=== PATIENT | male | born 1970 | race Caucasian/White ===

== ENCOUNTER 2017-12-07 15:06 | Emergency (ER) | payer SELFPAY ==
[2017-12-07 15:07] VITALS: BP 126/84; PULSE 83; RESP 18; TEMP 98.6; O2SAT 100
--- NOTE | 2017-12-07 17:50 | PD ---
HPI Chief Complaint: Anxiety Time Seen by Provider: 17:38 Travel History International Travel<30 days: No Contact w/Intl Traveler<30days: No Traveled to known affect area: No History of Present Illness HPI This patient complains of having paranoid thoughts. He denies any auditory or visual hallucination or suicidal thought. He has long-standing diagnosis of depression. He is requesting psychiatric evaluation. He says he went to [facility] earlier today and had extensive medical testing including lab studies and brain CT. He did not get psychiatric evaluation and he desires that. He has history of ADHD and take vyvance. No current drug use. Remote history of cocaine use. Symptoms severity is moderate. No alleviating factors. Symptoms likely exacerbated by his current and ongoing divorce. [facility] Social History Alcohol Use: No Tobacco Use: Yes Substance Use: Yes Allergies-Medications (Allergen,Severity, Reaction): Coded Allergies: No Known Allergies (Unverified , 12/07/17) Reported Meds & Prescriptions Reported Meds & Active Scripts Active Reported Vyvanse (Lisdexamfetamine Dimesylate) 30 Mg Cap 30 Mg PO DAILY Lexapro (Escitalopram Oxalate) 20 Mg Tab 20 Mg PO DAILY Review of Systems General / Constitutional: No: Fever Eyes: No: Visual changes HENT: No: Headaches Cardiovascular: No: Chest Pain or Discomfort Respiratory: No: Shortness of Breath Gastrointestinal: No: Abdominal Pain Genitourinary: No: Dysuria Musculoskeletal: No: Pain Skin: No Rash Neurologic: No: Weakness Psychiatric: Positive: Depression, Disorder of Thought, Mood Disorder Endocrine: No: Polydipsia Hematologic/Lymphatic: No: Easy Bruising Physical Exam Narrative GENERAL: Well-nourished, well-developed patient in no apparent distress. SKIN: Focused skin assessment reveals no rash and nodules. Skin is Warm and dry. HEAD: Atraumatic. Normocephalic. EYES: Pupils equal and round. No scleral icterus. No injection or drainage. ENT: No nasal bleeding or discharge. Mucous membranes pink and moist. NECK: Trachea midline. No JVD. CARDIOVASCULAR: Regular rate and rhythm. No murmur appreciated. RESPIRATORY: No accessory muscle use. Clear to auscultation. Breath sounds equal bilaterally. GASTROINTESTINAL: Abdomen soft, non-tender, nondistended. Hepatic and splenic margins not palpable. MUSCULOSKELETAL: No obvious deformities. No clubbing. No cyanosis. No edema. NEUROLOGICAL: Awake and alert. No obvious cranial nerve deficits. Motor grossly within normal limits. Normal speech. PSYCHIATRIC: Appropriate mood and affect; insight and judgment reduced. Data Data Last Documented VS Vital Signs Date Time Temp Pulse Resp B/P (MAP) Pulse Ox O2 Delivery O2 Flow Rate FiO2 12/07/17 15:07 98.6 83 18 126/84 (98) 100 Orders Orders Psych Screen (12/07/17 17:45) Drug Screen, Random Urine (12/07/17 17:45) Iv Access Insert/Monitor (12/07/17 18:10) Complete Blood Count With Diff (12/07/17 18:10) Basic Metabolic Panel (Bmp) (12/07/17 18:10) Thyroid Stimulating Hormone (12/07/17 18:10) Labs Laboratory Tests Test 12/07/17 17:50 12/07/17 18:38 Urine Opiates Screen NEG Urine Barbiturates Screen NEG Urine Amphetamines Screen POS Urine Benzodiazepines Screen NEG Urine Cocaine Screen NEG Urine Cannabinoids Screen POS White Blood Count 6.3 TH/MM3 Red Blood Count 4.90 MIL/MM3 Hemoglobin 15.0 GM/DL Hematocrit 43.7 % Mean Corpuscular Volume 89.2 FL Mean Corpuscular Hemoglobin 30.7 PG Mean Corpuscular Hemoglobin Concent 34.4 % Red Cell Distribution Width 12.9 % Platelet Count 319 TH/MM3 Mean Platelet Volume 8.0 FL Neutrophils (%) (Auto) 49.9 % Lymphocytes (%) (Auto) 37.0 % Monocytes (%) (Auto) 10.3 % Eosinophils (%) (Auto) 2.1 % Basophils (%) (Auto) 0.7 % Neutrophils # (Auto) 3.1 TH/MM3 Lymphocytes # (Auto) 2.3 TH/MM3 Monocytes # (Auto) 0.7 TH/MM3 Eosinophils # (Auto) 0.1 TH/MM3 Basophils # (Auto) 0.0 TH/MM3 CBC Comment DIFF FINAL Differential Comment Blood Urea Nitrogen 9 MG/DL Creatinine 0.99 MG/DL Random Glucose 91 MG/DL Calcium Level 9.3 MG/DL Sodium Level 140 MEQ/L Potassium Level 4.1 MEQ/L Chloride Level 102 MEQ/L Carbon Dioxide Level 31.3 MEQ/L Anion Gap 7 MEQ/L Estimat Glomerular Filtration Rate 81 ML/MIN Thyroid Stimulating Hormone 3rd Gen 1.990 uIU/ML MDM Medical Decision Making Medical Screen Exam Complete: Yes Emergency Medical Condition: Yes Medical Record Reviewed: Yes Differential Diagnosis Depression, depression with psychotic features, adjustment disorder Narrative Course I have reviewed the patient's electronic medical record. Patient had by his report an extensive medical workup today. I have ordered record request from that hospital to review what tests he had done Drug screen sent is positive for marijuana and amphetamines which he is prescribed for ADHD I've ordered psychiatric evaluation at his request. It turns out this patient was at [facility] today. We have sent the request for records but unfortunately my experience is a takes an unbelievable amount of hours for that to send us any records I've ordered new fresh labs. CBC is normal Metabolic profile is normal TSH is normal Patient is is medically stable as can be made. He is calm and cooperative and awaiting psychiatric evaluation. I suspect he will be okay for outpatient follow-up after psych eval Diagnosis Primary Impression: Paranoid ideation Additional Impression: Depression Qualified Codes: F32.9 - Major depressive disorder, single episode, unspecified Mark Aparicio MD Dec 07, 2017 17:50
[2017-12-07] MEDS ORDERED: LEXA20TA PO (17:54)
[2017-12-07] MEDS ORDERED: vivance (17:54)
[2017-12-07 19:02] LABS: AUTOMATED NEUTROPHIL # 3.1 TH/MM3 (1.8-7.7); BASOPHIL % 0.7 % (0.0-2.0); EOSINOPHIL # 0.1 TH/MM3 (0-0.4); EOSINOPHIL % 2.1 % (0.0-4.0); HEMATOCRIT 43.7 % (39.0-51.0); LYMPHOCYTE # 2.3 TH/MM3 (1.0-4.8); MEAN CELL VOLUME 89.2 FL (80.0-100.0); MEAN CORPUSCULAR HEMOGLOBIN 30.7 PG (27.0-34.0); MEAN CORPUSCULAR HGB CONC 34.4 % (32.0-36.0); MONO % 10.3 % (0.0-8.0); MONOCYTE # 0.7 TH/MM3 (0-0.9); NEUT % 49.9 % (16.0-70.0); PLATELET COUNT 319 TH/MM3 (150-450); RED CELL DISTRIBUTION WIDTH 12.9 % (11.6-17.2); WHITE BLOOD COUNT 6.3 TH/MM3 (4.0-11.0)
[2017-12-07 19:13] LABS: BICARBONATE 31.3 MEQ/L (21.0-32.0); CALCIUM 9.3 MG/DL (8.5-10.1); CREATININE 0.99 MG/DL (0.60-1.30)
[2017-12-07] MEDS ORDERED: LISD30 PO (19:43)
== END 2017-12-07 23:30 | disposition home or self-care (01) ==
LOC: NEPD 15:06
DX: F32.9 Major depressive disorder, single episode, unspecified (principal); F90.9 Attention-deficit hyperactivity disorder, unspecified type; Z72.0 Tobacco use; Z79.899 Other long term (current) drug therapy
CPT/HCPCS: 80048; 80307; 84443; 85025; 99283